=== PATIENT | female | born 1965 | race Caucasian/White ===

== ENCOUNTER 2016-07-29 10:57 | Emergency (ER) | payer OTHER ==
--- NOTE | 2016-07-29 13:03 | ED CLINICAL REPORT ---
Clinical Report - Physicians/Mid Levels [facility] [address] [place] [address] 07/29/2016 10:59 Patient: STACY ALVAREZ Time Seen: 11:16. Arrived- By private vehicle. Historian- patient. HISTORY OF PRESENT ILLNESS Chief Complaint: FLANK PAIN. It is described as cramping. No radiation. It is described as located in the left flank. This started about 2 weeks ago and is still present. It was abrupt in onset and has been waxing/waning. At its maximum, severity described as moderate. When seen in the E.D., severity described as moderate. Modifying factors- worsened by movement. Relieved by rest. No nausea, vomiting or diarrhea. REVIEW OF SYSTEMS No chills, fever, sweats, calf pain or chest pain. No cough, difficulty breathing, pedal edema, palpitations or abdominal pain. No constipation, diarrhea, nausea, vomiting or urinary problems. All systems otherwise negative, except as recorded above. PAST HISTORY Problems: Hepatitis C. URI. Bronchitis. Hypertension. Dental Pain. Dental Caries. Depression. Hypothyroidism. Anxiety Reaction. Additional Surgeries: Hysterectomy. Medications: Omeprazole Oral. Metoprolol Tartrate Oral. Effexor Oral 175mg , daily. Levothyroxine Sodium 150mcg daily . Allergies: NKA. SOCIAL HISTORY Current every day light tobacco smoker (cigarette)- less than 1/2 a pack per day. No alcohol use or drug use. FAMILY HISTORY Denies family medical history. ADDITIONAL NOTES The nursing notes have been reviewed. PHYSICAL EXAM Vital Signs: 07/29/2016 11:11 BP: 131/78. HR: 84. RR: 20. O2 saturation: 98%. Temp: 98.2 F. Have been reviewed. Appearance: Alert. Eyes: Pupils equal, round and reactive to light. ENT: Pharynx normal. Neck: Neck supple. CVS: Normal heart rate and rhythm. Heart sounds normal. Respiratory: No respiratory distress. Breath sounds normal. Abdomen: Soft and nontender. Bowel sounds normal. No organomegaly. No mass. Back: Painless ROM. Mild muscle spasm in the left mid lumbar spine region. No vertebral point tenderness. Skin: Skin warm and dry. Normal skin color. Normal skin turgor. Extremities: Extremities exhibit normal ROM. No lower extremity edema. Neuro: No motor deficit. No sensory deficit. LABS, X-RAYS, AND EKG Laboratory Tests: UA-Culture if indicated: (LIZ: 07/29/2016 11:10) ( [facility] 07/29/2016 11:34) Final results Test Result Flag Units (Reference) URINE COLOR YELLOW URINE APPEARANCE CLEAR URINE GLUCOSE NEGATIVE (NEGATIVE) URINE BILIRUBIN NEGATIVE (NEGATIVE) URINE KETONE NEGATIVE (NEGATIVE) URINE SPECIFIC GRAVITY >= 1.030 (1.010-1.030) URINE PH 5.5 (5.0-8.0) URINE PROTEIN NEGATIVE (NEGATIVE) URINE UROBILINOGEN 0.2 EU/dL (0.2-1.0) URINE NITRITE NEGATIVE (NEGATIVE) URINE BLOOD NEGATIVE (NEGATIVE) URINE LEUK ESTERASE NEGATIVE (NEGATIVE) URINE RBC NONE SEEN rbc/hpf (0-1) URINE WBC 0-1 wbc/hpf (0-1) URINE EPITHELIAL CELLS 0-1 EPI/hpf (0-5) URINE BACTERIA NONE SEEN (NONE SEEN) URINE COMMENT CULT NOT INDICATED URINE CULTURES ARE SET-UP BASED ON THE FOLLOWING CRITERIA:POSITIVE NITRITEPOSITIVE LEUKOCYTE ESTERASEGREATER THAN 10 WHITE BLOOD CELLSMODERATE (2+) OR GREATER BACTERIA CBC w Diff: (LIZ: 07/29/2016 11:28) ( [facility] 07/29/2016 12:03) Final results Test Result Flag Units (Reference) WHITE BLOOD COUNT 9.8 K/uL (4.5-11.5) RED BLOOD COUNT 4.12 M/uL (4.00-5.20) HEMOGLOBIN 13.4 gm/dL (12.0-16.0) HEMATOCRIT 39.4 % (36.0-46.0) MEAN CELL VOLUME 96 fL (80-100) MEAN CORPUSCULAR HGB 33 pg (26-34) MEAN CORPUSCULAR HGB CONC 34 g/dL (31-37) RED CELL DISTRIBUTION WIDTH 13.9 % (11.6-14.8) PLATELET COUNT 93 L K/uL (150-400) NEUTROPHIL % 43.6 L % (50-75) LYMPH % 46.5 H % (25-40) MONO % 8.0 % (3-14) EOSINOPHIL % 1.6 % (0-4) BASOPHIL % 0.3 % (0-2) CMP: (LIZ: 07/29/2016 11:28) ( MsgRcvd 07/29/2016 12:27) Final results Test Result Flag Units (Reference) LIPASE 318 U/L (73-393) AMYLASE 42 U/L (25-115) GLUCOSE 190 H mg/dL (70-110) BUN 13 mg/dL (7-18) CREATININE 0.7 mg/dL (0.6-1.3) Estimated GFR >60 mL/min Estimated GFR- >60 mL/min Note: Persistent reduction over 3 months in eGFR<60 mL/min/1.73 m2 defines CKD. Patients with eGFR values>=60 mL/min/1.73 m2 may also have CKD if evidence ofpersistent proteinuria. Additional information may be foundat www.kidney.org. SODIUM 138 mmol/L (136-145) POTASSIUM 3.9 mmol/L (3.5-5.1) CHLORIDE 104 mmol/L (98-107) CARBON DIOXIDE 27 mmol/L (21-32) CALCIUM 8.2 L mg/dL (8.5-10.1) TOTAL PROTEIN 8.7 H g/dL (6.4-8.2) ALBUMIN 2.8 L g/dL (3.3-5.0) BILIRUBIN, TOTAL 0.5 mg/dL (0.0-1.0) ALKALINE PHOSPHATASE 241 H U/L (46-116) AST (SGOT) 87 H U/L (15-37) ALT (SGPT) 106 H U/L (12-78) . PROGRESS AND PROCEDURES Course of Care: Patient is stable. Patient/family counseled. Old medical records reviewed. Disposition: Discharged. Condition: stable. CLINICAL IMPRESSION Myofascial strain INSTRUCTIONS No driving or operating machinery while taking medication. No bending or stooping, prolonged sitting or lifting greater than 5 lbs. Warnings: Further evaluation is necessary. GENERAL WARNINGS: Return or contact your physician immediately if your condition worsens or changes unexpectedly, if not improving as expected, or if other problems arise. Your Current Medications: CONTINUE TAKING THE FOLLOWING MEDICATIONS: Effexor Oral : 175mg daily. Levothyroxine Sodium : 150mcg daily. Metoprolol Tartrate Oral. Omeprazole Oral. Prescription Medications: Naproxen 500 mg tablets: take 1 orally every 12 hours as needed for pain. Dispense twenty (20). No refills. Cyclobenzaprine 10 mg: take 1 orally every 8 hours as needed for muscle spasm or pain. Dispense ten (10). No refills. Understanding of the discharge instructions verbalized by patient. Follow-up with: [facility], , , [address], , [facility] [id number] Follow up in three days. Call for the next available appointment. (Electronically signed by Hiren Patel MD 07/29/2016 16:41)
--- NOTE | 2016-07-29 13:03 | ED NURSING NOTES ---
Clinical Report - Nurses Located Within [facility] [address] [place] [address] 07/29/2016 10:59 Patient: STACY ALVAREZ TRIAGE Triage time 11:08. Acuity: LEVEL 3. Chief Complaint: ABDOMINAL PAIN. Alert. No acute distress. SEPSIS SCREEN: Sepsis Screen. Negative (no infection suspected/documented). --11:15 Radha Arriaga R.N. 11:11 07/29/16. BP: 131/78. HR: 84. RR: 20. O2 saturation: 98% on room air. Temp: 98.2 F (oral). Pain level now 5/10. --11:15 Radha Arriaga R.N. LUIS ANGEL COMA SCORE: [place] Coma Scale: 15- eyes open spontaneously (4); best verbal response- oriented x 4 (5); best motor response- obeys commands (6). --11:15 Radha Arriaga R.N. Weight: 92.9 kg stated. Height/Length: 64 inches Per Patient. BMI: 35.2. --11:12 Radha Arriaga R.N. Medications Effexor Oral 175mg , daily. Levothyroxine Sodium 150mcg daily . --11:13 Radha Arriaga R.N. Metoprolol Tartrate Oral. --11:13 Radha Arriaga R.N. Omeprazole Oral. --11:13 Radha Arriaga R.N. Medication/allergy information source: the patient. --11:15 Radha Arriaga R.N. Allergies NKA. --11:14 Radha Arriaga R.N. History Arrived by private vehicle. Historian: patient. Primary physician (no pcp). ( left lateral side pain. denies flank pain, denies abd pain, denies naesea, vomiting and diarrhea. Denies any burning with urination. States pain is worsened when she lays on her left side.). Onset. (1 weeks ago). No nausea, vomiting, diarrhea, constipation or abdominal pain. No fever. 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 SOCIAL HX: Light tobacco smoker (cigarette)- less than 1/2 a pack per day. No alcohol use or drug use. ABUSE ASSESSMENT: Abuse assessment: The patient was asked "Do you feel safe in your home?". No report of abuse. FALL RISK ASSESSMENT: Fall risk assessment completed. No fall risk identified. NUTRITIONAL RISK ASSESSMENT: The nutritional risk assessment revealed no deficiencies. FUNCTIONAL ASSESSMENT: Functional assessment: no impairments noted. LEARNING NEEDS ASSESSMENT: The learning needs assessment revealed no barriers. SKIN INTEGRITY ASSESSMENT: Skin integrity risk assessment completed. No skin integrity risk identified. --11:15 Radha Arriaga R.N. Interventions ID band on patient. To treatment room. --11:15 Radha Arriaga R.N. PHYSICAL ASSESSMENT 11:16 07/29/16. Ambulatory to room. GENERAL / NEURO / PSYCH: Alert. Oriented X 4. Appears in no acute distress. HEENT: Mucous membranes are pink. RESPIRATORY: Respirations not labored. CVS: Capillary refill less than 2 seconds. GI / : Abdomen soft and nontender. ( left side tender to palpation). SKIN: Skin is warm and dry. --11:16 Radha Arriaga R.N. NURSING PROGRESS NOTES 11:16 07/29/16. The plan of care for this patient has been created. Patient gowned. Head of bed elevated. Call light placed in reach. Bed placed in lowest position. Brakes of bed on. Patient ready for evaluation- chart flagged. --11:16 Radha Arriaga R.N. 11:16 07/29/16. Patient ID band checked for patient name and birthdate: patient confirmed. Instructions provided to collect clean catch urine and patient verbalized understanding. Clean catch urine collected with return of yellow-colored clear urine; odor is normal; sample sent to lab for urinalysis and culture. Specimen labeled in the presence of the patient. --11:16 Radha Arriaga R.N. 11:33 07/29/2016 One (1) unsuccessful IV access attempt of a PIV catheter including the right antecubital space. Applied bandage (with ultrasound guidance x 20 minutes). --11:48 Radha Arriaga R.N. ( pt was instructed during triage and again during blood draw not to have anything to eat or drink. Upon entering room to check on patient, found her to be eating and drinking coffee. Again instructed patient not to eat or drink. Pt states, "I couldn't help it."). --11:58 Radha Arriaga R.N. 13:00 07/29/16. BP: 144/81. HR: 78. RR: 22. O2 saturation: 99% on room air. Pain level now 12/01. --13:00 Radha Arriaga R.N. DISPOSITION / DISCHARGE 13:14 07/29/16. Departure time: 1314. Condition at departure: unchanged and stable. No learning barriers present. Discharge instructions provided and reviewed with the patient. Reviewed medication(s) side effects, precautions, dosing and course information. Prescription(s) given to the patient. Activity restrictions (light lifting) reviewed. Work note given. Patient verbalized understanding. Written instructions provided in Greek. The patient was discharged by the physician. She was discharged home and accompanied by family. She left the Emergency Department ambulatory and via private vehicle. Driving (daughter). --13:15 Radha Arriaga R.N. Locked/Released at 08/02/2016 10:06 by Radha Arriaga R.N.
--- NOTE | 2016-07-29 13:03 | ED CLINICAL REPORT ---
Clinical Report - Physicians/Mid Levels [facility] [address] [place] [address] 07/29/2016 10:59 Patient: STACY ALVAREZ Time Seen: 11:16. Arrived- By private vehicle. Historian- patient. HISTORY OF PRESENT ILLNESS Chief Complaint: FLANK PAIN. It is described as cramping. No radiation. It is described as located in the left flank. This started about 2 weeks ago and is still present. It was abrupt in onset and has been waxing/waning. At its maximum, severity described as moderate. When seen in the E.D., severity described as moderate. Modifying factors- worsened by movement. Relieved by rest. No nausea, vomiting or diarrhea. REVIEW OF SYSTEMS No chills, fever, sweats, calf pain or chest pain. No cough, difficulty breathing, pedal edema, palpitations or abdominal pain. No constipation, diarrhea, nausea, vomiting or urinary problems. All systems otherwise negative, except as recorded above. PAST HISTORY Problems: Hepatitis C. URI. Bronchitis. Hypertension. Dental Pain. Dental Caries. Depression. Hypothyroidism. Anxiety Reaction. Additional Surgeries: Hysterectomy. Medications: Omeprazole Oral. Metoprolol Tartrate Oral. Effexor Oral 175mg , daily. Levothyroxine Sodium 150mcg daily . Allergies: NKA. SOCIAL HISTORY Current every day light tobacco smoker (cigarette)- less than 1/2 a pack per day. No alcohol use or drug use. FAMILY HISTORY Denies family medical history. ADDITIONAL NOTES The nursing notes have been reviewed. PHYSICAL EXAM Vital Signs: 07/29/2016 11:11 BP: 131/78. HR: 84. RR: 20. O2 saturation: 98%. Temp: 98.2 F. Have been reviewed. Appearance: Alert. Eyes: Pupils equal, round and reactive to light. ENT: Pharynx normal. Neck: Neck supple. CVS: Normal heart rate and rhythm. Heart sounds normal. Respiratory: No respiratory distress. Breath sounds normal. Abdomen: Soft and nontender. Bowel sounds normal. No organomegaly. No mass. Back: Painless ROM. Mild muscle spasm in the left mid lumbar spine region. No vertebral point tenderness. Skin: Skin warm and dry. Normal skin color. Normal skin turgor. Extremities: Extremities exhibit normal ROM. No lower extremity edema. Neuro: No motor deficit. No sensory deficit. LABS, X-RAYS, AND EKG Laboratory Tests: UA-Culture if indicated: (LIZ: 07/29/2016 11:10) ( [facility] 07/29/2016 11:34) Final results Test Result Flag Units (Reference) URINE COLOR YELLOW URINE APPEARANCE CLEAR URINE GLUCOSE NEGATIVE (NEGATIVE) URINE BILIRUBIN NEGATIVE (NEGATIVE) URINE KETONE NEGATIVE (NEGATIVE) URINE SPECIFIC GRAVITY >= 1.030 (1.010-1.030) URINE PH 5.5 (5.0-8.0) URINE PROTEIN NEGATIVE (NEGATIVE) URINE UROBILINOGEN 0.2 EU/dL (0.2-1.0) URINE NITRITE NEGATIVE (NEGATIVE) URINE BLOOD NEGATIVE (NEGATIVE) URINE LEUK ESTERASE NEGATIVE (NEGATIVE) URINE RBC NONE SEEN rbc/hpf (0-1) URINE WBC 0-1 wbc/hpf (0-1) URINE EPITHELIAL CELLS 0-1 EPI/hpf (0-5) URINE BACTERIA NONE SEEN (NONE SEEN) URINE COMMENT CULT NOT INDICATED URINE CULTURES ARE SET-UP BASED ON THE FOLLOWING CRITERIA:POSITIVE NITRITEPOSITIVE LEUKOCYTE ESTERASEGREATER THAN 10 WHITE BLOOD CELLSMODERATE (2+) OR GREATER BACTERIA CBC w Diff: (LIZ: 07/29/2016 11:28) ( [facility] 07/29/2016 12:03) Final results Test Result Flag Units (Reference) WHITE BLOOD COUNT 9.8 K/uL (4.5-11.5) RED BLOOD COUNT 4.12 M/uL (4.00-5.20) HEMOGLOBIN 13.4 gm/dL (12.0-16.0) HEMATOCRIT 39.4 % (36.0-46.0) MEAN CELL VOLUME 96 fL (80-100) MEAN CORPUSCULAR HGB 33 pg (26-34) MEAN CORPUSCULAR HGB CONC 34 g/dL (31-37) RED CELL DISTRIBUTION WIDTH 13.9 % (11.6-14.8) PLATELET COUNT 93 L K/uL (150-400) NEUTROPHIL % 43.6 L % (50-75) LYMPH % 46.5 H % (25-40) MONO % 8.0 % (3-14) EOSINOPHIL % 1.6 % (0-4) BASOPHIL % 0.3 % (0-2) CMP: (LIZ: 07/29/2016 11:28) ( MsgRcvd 07/29/2016 12:27) Final results Test Result Flag Units (Reference) LIPASE 318 U/L (73-393) AMYLASE 42 U/L (25-115) GLUCOSE 190 H mg/dL (70-110) BUN 13 mg/dL (7-18) CREATININE 0.7 mg/dL (0.6-1.3) Estimated GFR >60 mL/min Estimated GFR- >60 mL/min Note: Persistent reduction over 3 months in eGFR<60 mL/min/1.73 m2 defines CKD. Patients with eGFR values>=60 mL/min/1.73 m2 may also have CKD if evidence ofpersistent proteinuria. Additional information may be foundat www.kidney.org. SODIUM 138 mmol/L (136-145) POTASSIUM 3.9 mmol/L (3.5-5.1) CHLORIDE 104 mmol/L (98-107) CARBON DIOXIDE 27 mmol/L (21-32) CALCIUM 8.2 L mg/dL (8.5-10.1) TOTAL PROTEIN 8.7 H g/dL (6.4-8.2) ALBUMIN 2.8 L g/dL (3.3-5.0) BILIRUBIN, TOTAL 0.5 mg/dL (0.0-1.0) ALKALINE PHOSPHATASE 241 H U/L (46-116) AST (SGOT) 87 H U/L (15-37) ALT (SGPT) 106 H U/L (12-78) . PROGRESS AND PROCEDURES Course of Care: Patient is stable. Patient/family counseled. Old medical records reviewed. Disposition: Discharged. Condition: stable. CLINICAL IMPRESSION Myofascial strain INSTRUCTIONS No driving or operating machinery while taking medication. No bending or stooping, prolonged sitting or lifting greater than 5 lbs. Warnings: Further evaluation is necessary. GENERAL WARNINGS: Return or contact your physician immediately if your condition worsens or changes unexpectedly, if not improving as expected, or if other problems arise. Your Current Medications: CONTINUE TAKING THE FOLLOWING MEDICATIONS: Effexor Oral : 175mg daily. Levothyroxine Sodium : 150mcg daily. Metoprolol Tartrate Oral. Omeprazole Oral. Prescription Medications: Naproxen 500 mg tablets: take 1 orally every 12 hours as needed for pain. Dispense twenty (20). No refills. Cyclobenzaprine 10 mg: take 1 orally every 8 hours as needed for muscle spasm or pain. Dispense ten (10). No refills. Understanding of the discharge instructions verbalized by patient. Follow-up with: [facility], , , [address], , [facility] [id number] Follow up in three days. Call for the next available appointment. (Electronically signed by Hiren Patel MD 07/29/2016 16:41)
--- NOTE | 2016-07-29 13:03 | ED ORDER SUMMARY ---
..... Patient: STACY ALVAREZ OrderSheet [facility] VisitID: [id number] [place] [address] 51y, F Registration Date/Time: 07/29/2016 ORDER SHEET Weight: 92.9 kg (stated) Allergies: NKA GENERAL ORDERS: CBC w Diff Urgent (11:07/29/2016 Jean Claude SARAVIA) (Ack 11:22 Aníbal) (11:30 KWilliams R.N.) CMP Urgent (11:07/29/2016 Jean Claude SARAVIA) (Ack 11:22 Aníbal) (11:30 KWilliams R.N.) UA-Culture if indicated Urgent (11:07/29/2016 Jean Claude SARAVIA) (Ack 11:22 Aníbal) (11:47 KWilliams R.N.) Amylase Urgent (11:07/29/2016 Jean Claude SARAVIA) (Ack 11:22 Aníbal) (11:30 KWilliams R.N.) Lipase Urgent (11:07/29/2016 Jean Claude SARAVIA) (Ack 11:22 Aníbal) (11:30 KWilliams R.N.) MEDICATION ORDERS: IV FLUIDS: IV NS : initial bolus 1000 mL (1000 mL/hr), then 150 mL/hr for 4h (NOW); Urgent (11:18 07/29/2016 Jean Claude SARAVIA) (Ack 11:57 KWilliams R.N.) ORDER SHEET NOTES: [Electronically signed by Hiren Patel MD (16:41 07/29/2016)] [Electronically signed by Radha Arriaga R.N. (10:06 08/02/2016)] [Electronically locked/signed by Radha Arriaga R.N. (10:08/02/2016)]
--- NOTE | 2016-07-29 13:03 | ED ORDER SUMMARY ---
..... Patient: STACY ALVAREZ OrderSheet [facility] VisitID: [id number] [place] [address] 51y, F Registration Date/Time: 07/29/2016 ORDER SHEET Weight: 92.9 kg (stated) Allergies: NKA GENERAL ORDERS: CBC w Diff Urgent (11:07/29/2016 Jean Claude SARAVIA) (Ack 11:22 Aníbal) (11:30 KWilliams R.N.) CMP Urgent (11:07/29/2016 Jean Claude SARAVIA) (Ack 11:22 Aníbal) (11:30 KWilliams R.N.) UA-Culture if indicated Urgent (11:07/29/2016 Jean Claude SARAVIA) (Ack 11:22 Aníbal) (11:47 KWilliams R.N.) Amylase Urgent (11:07/29/2016 Jean Claude SARAVIA) (Ack 11:22 Aníbal) (11:30 KWilliams R.N.) Lipase Urgent (11:07/29/2016 Jean Claude SARAVIA) (Ack 11:22 Aníbal) (11:30 KWilliams R.N.) MEDICATION ORDERS: IV FLUIDS: IV NS : initial bolus 1000 mL (1000 mL/hr), then 150 mL/hr for 4h (NOW); Urgent (11:18 07/29/2016 Jean Claude SARAVIA) (Ack 11:57 KWilliams R.N.) ORDER SHEET NOTES: [Electronically signed by Hiren Patel MD (16:41 07/29/2016)] [Electronically signed by Radha Arriaga R.N. (10:06 08/02/2016)] [Electronically locked/signed by Radha Arriaga R.N. (10:08/02/2016)]
--- NOTE | 2016-08-02 10:06 | ED MAR SUMMARY ---
..... Medication Administration Record [facility] [address] [place], [place] [id number] Patient: STACY ALVAREZ Visit ID: [id number] 51y, F Weight: 92.9 kg Height/Length: 64 in BMI: 35.2 ALLERGIES: NKA
--- NOTE | 2016-08-02 10:06 | ED MED RECONCILIATION SUMMARY ---
Patient: STACY ALVAREZ Medication Reconciliation Report [facility] VisitID: [id number] [address] [place] [address] 51y, F Registration Date/Time: 07/29/2016 Weight: 92.9 kg Height/Length: 64 in. BMI: 35.2 ALLERGIES: NKA The patient's Home Medications are listed below: CONTINUE TAKING THE FOLLOWING MEDICATIONS: Effexor Oral 175mg , daily Levothyroxine Sodium 150mcg daily Metoprolol Tartrate Oral Omeprazole Oral The source(s) of the original Home Medication information: patient The following Medications were given to the patient in the Emergency Department: None. The following Medications were prescribed to the patient: Naproxen 500 mg tablets: take 1 orally every 12 hours as needed for pain. Dispense twenty (20). No refills. -- Hiren Patel MD Cyclobenzaprine 10 mg: take 1 orally every 8 hours as needed for muscle spasm or pain. Dispense ten (10). No refills. -- Hiren Patel MD
--- NOTE | 2016-08-02 10:06 | ED MAR SUMMARY ---
..... Medication Administration Record [facility] [address], [place] [id number] Patient: STACY ALVAREZ Visit ID: [id number] 51y, F Weight: 92.9 kg Height/Length: 64 in BMI: 35.2 ALLERGIES: NKA
--- NOTE | 2016-08-02 10:06 | ED DISCHARGE INSTRUCTIONS ---
Patient: STACY ALVAREZ General Instructions [facility] VisitID: [id number] [address], [place] [address] 51y, F Registration Date/Time: 07/29/2016 Myofascial strain INSTRUCTIONS No driving or operating machinery while taking medication. No bending or stooping, prolonged sitting or lifting greater than 5 lbs. Warnings: Further evaluation is necessary. GENERAL WARNINGS: Return or contact your physician immediately if your condition worsens or changes unexpectedly, if not improving as expected, or if other problems arise. Your Current Medications: CONTINUE TAKING THE FOLLOWING MEDICATIONS: Effexor Oral : 175mg daily. Levothyroxine Sodium : 150mcg daily. Metoprolol Tartrate Oral. Omeprazole Oral. Prescription Medications: Naproxen 500 mg tablets: take 1 orally every 12 hours as needed for pain. Dispense twenty (20). No refills. Cyclobenzaprine 10 mg: take 1 orally every 8 hours as needed for muscle spasm or pain. Dispense ten (10). No refills. Understanding of the discharge instructions verbalized by patient. Follow-up with: [facility], , , [address], [facility], [id number] Follow up in three days. Call for the next available appointment. ADDITIONAL INFORMATION Muscle Strain,Extremity A MUSCLE STRAIN is a stretching and tearing of muscle fibers. This causes pain, especially with motion of that muscle. There may also be some swelling and bruising. Home Care: 1) Keep the injured area raised to reduce pain and swelling. This is especially important during the first 48 hours. 2) Make an ice pack (ice cubes in a plastic bag, wrapped in a towel) and apply for 20 minutes every 1-2 hours the first day. You should continue with ice packs 3-4 times a day for the second and third days. Unless otherwise instructed, on the fourth day you may begin hot soaks or hot packs (small towel soaked in hot water) 3-4 times a day while you gently exercise the involved area. 3) You may use acetaminophen (Tylenol) or ibuprofen (Motrin, Advil) to control pain, unless another medicine was prescribed. [ NOTE : If you have chronic liver or kidney disease or ever had a stomach ulcer or GI bleeding, talk with your doctor before using these medicines.] 4) For LEG STRAINS: If CRUTCHES have been recommended, do not bear full weight on the injured leg until you can do so without pain. You may return to sports when you are able to hop and run on the injured leg without pain. Follow Up with your doctor or this facility if you are not improving within the next five days. Get Prompt Medical Attention if any of the following occur: -- Fingers or toes become swollen, cold, blue, numb or tingly -- Pain or swelling increases Back Pain [Acute Or Chronic] Back pain is usually caused by an injury to the muscles or ligaments of the spine. Sometimes the disks that separate each bone in the spine may bulge and cause pain by pressing on a nearby nerve. Back pain may also appear after a sudden twisting/bending force (such as in a car accident), after a simple awkward movement, or lifting something heavy with poor body positioning. In either case, muscle spasm is often present and adds to the pain. Acute back pain usually gets better in one to two weeks. Back pain related to disk disease, arthritis in the spinal joints or spinal stenosis (narrowing of the spinal canal) can become chronic and last for months or years. Unless you had a physical injury (for example, a car accident or fall) X-rays are usually not ordered for the initial evaluation of back pain. If pain continues and does not respond to medical treatment, x-rays and other tests may be performed at a later time. Home Care: You may need to stay in bed the first few days. But, as soon as possible, begin sitting or walking to avoid problems with prolonged bed rest (muscle weakness, worsening back stiffness and pain, blood clots in the legs). When in bed, try to find a position of comfort. A firm mattress is best. Try lying flat on your back with pillows under your knees. You can also try lying on your side with your knees bent up towards your chest and a pillow between your knees. Avoid prolonged sitting. This puts more stress on the lower back than standing or walking. During the first two days after injury, apply an ICE PACK to the painful area for 20 minutes every 2-4 hours. This will reduce swelling and pain. HEAT (hot shower, hot bath or heating pad) works well for muscle spasm. You can start with ice, then switch to heat after two days. Some patients feel best alternating ice and heat treatments. Use the one method that feels the best to you. You may use acetaminophen (Tylenol) or ibuprofen (Motrin, Advil) to control pain, unless another pain medicine was prescribed. [NOTE: If you have chronic liver or kidney disease or ever had a stomach ulcer or GI bleeding, talk with your doctor before using these medicines.] Be aware of safe lifting methods and do not lift anything over 15 pounds until all the pain is gone. Follow Up with your doctor or this facility if your symptoms do not start to improve after one week. Physical therapy may be needed. [NOTE: If X-rays were taken, they will be reviewed by a radiologist. You will be notified of any new findings that may affect your care.] Get Prompt Medical Attention if any of the following occur: Pain becomes worse or spreads to your legs Weakness or numbness in one or both legs Loss of bowel or bladder control Numbness in the groin or genital area Naproxen Sodium Oral tablet What is this medicine? NAPROXEN (na PROX en) is a non-steroidal anti-inflammatory drug (NSAID). It is used to reduce swelling and to treat pain. This medicine may be used for dental pain, headache, or painful monthly periods. It is also used for painful joint and muscular problems such as arthritis, tendinitis, bursitis, and gout. How should I use this medicine? Take this medicine by mouth with a glass of water. Follow the directions on the prescription label. Take it with food if your stomach gets upset. Try to not lie down for at least 10 minutes after you take it. Take your medicine at regular intervals. Do not take your medicine more often than directed. Long-term, continuous use may increase the risk of heart attack or stroke. A special MedGuide will be given to you by the pharmacist with each prescription and refill. Be sure to read this information carefully each time. Talk to your electrical subcontractor regarding the use of this medicine in children. Special care may be needed. What side effects may I notice from receiving this medicine? Side effects that you should report to your doctor or health nursing care attendant as soon as possible: black or bloody stools, blood in the urine or vomit blurred vision chest pain difficulty breathing or wheezing nausea or vomiting severe stomach pain skin rash, skin redness, blistering or peeling skin, hives, or itching slurred speech or weakness on one side of the body swelling of eyelids, throat, lips unexplained weight gain or swelling unusually weak or tired yellowing of eyes or skin Side effects that usually do not require medical attention (report to your doctor or health nursing care attendant if they continue or are bothersome): constipation headache heartburn What may interact with this medicine? alcohol aspirin cidofovir diuretics lithium methotrexate other drugs for inflammation like ketorolac or prednisone pemetrexed probenecid warfarin What if I miss a dose? If you miss a dose, take it as soon as you can. If it is almost time for your next dose, take only that dose. Do not take double or extra doses. Where should I keep my medicine? Keep out of the reach of children. Store at room temperature between 15 and 30 degrees C (59 and 86 degrees F). Keep container tightly closed. Throw away any unused medicine after the expiration date. What should I tell my health care provider before I take this medicine? They need to know if you have any of these conditions: asthma cigarette smoker drink more than 3 alcohol containing drinks a day heart disease or circulation problems such as heart failure or leg edema (fluid retention) high blood pressure kidney disease liver disease stomach bleeding or ulcers an unusual or allergic reaction to naproxen, aspirin, other NSAIDs, other medicines, foods, dyes, or preservatives or trying to get breast-feeding What should I watch for while using this medicine? Tell your doctor or health nursing care attendant if your pain does not get better. Talk to your doctor before taking another medicine for pain. Do not treat yourself. This medicine does not prevent heart attack or stroke. In fact, this medicine may increase the chance of a heart attack or stroke. The chance may increase with longer use of this medicine and in people who have heart disease. If you take aspirin to prevent heart attack or stroke, talk with your doctor or health nursing care attendant. Do not take other medicines that contain aspirin, ibuprofen, or naproxen with this medicine. Side effects such as stomach upset, nausea, or ulcers may be more likely to occur. Many medicines available without a prescription should not be taken with this medicine. This medicine can cause ulcers and bleeding in the stomach and intestines at any time during treatment. Do not smoke cigarettes or drink alcohol. These increase irritation to your stomach and can make it more susceptible to damage from this medicine. Ulcers and bleeding can happen without warning symptoms and can cause . You may get drowsy or dizzy. Do not drive, use machinery, or do anything that needs mental alertness until you know how this medicine affects you. Do not stand or sit up quickly, especially if you are an older patient. This reduces the risk of dizzy or fainting spells. This medicine can cause you to bleed more easily. Try to avoid damage to your teeth and gums when you brush or floss your teeth. Cyclobenzaprine Hydrochloride Oral tablet What is this medicine? CYCLOBENZAPRINE (julius abernathy) is a muscle relaxer. It is used to treat muscle pain, spasms, and stiffness. How should I use this medicine? Take this medicine by mouth with a glass of water. Follow the directions on the prescription label. If this medicine upsets your stomach, take it with food or milk. Take your medicine at regular intervals. Do not take it more often than directed. Talk to your electrical subcontractor regarding the use of this medicine in children. Special care may be needed. What side effects may I notice from receiving this medicine? Side effects that you should report to your doctor or health nursing care attendant as soon as possible: allergic reactions like skin rash, itching or hives, swelling of the face, lips, or tongue chest pain fast heartbeat hallucinations seizures vomiting Side effects that usually do not require medical attention (report to your doctor or health nursing care attendant if they continue or are bothersome): headache What may interact with this medicine? Do not take this medicine with any of the following medications: cisapride droperidol flecainide grepafloxacin halofantrine levomethadyl MAOIs like Carbex, Eldepryl, Marplan, Nardil, and Parnate nilotinib pimozide probucol sertindole This medicine may also interact with the following medications: abarelix alcohol contrast dyes dolasetron guanethidine medicines for cancer medicines for depression, anxiety, or psychotic disturbances medicines to treat an irregular heartbeat medicines used for sleep or numbness during surgery or procedure methadone octreotide ondansetron palonosetron phenothiazines like chlorpromazine, mesoridazine, prochlorperazine, thioridazine some medicines for infection like alfuzosin, chloroquine, clarithromycin, levofloxacin, mefloquine, pentamidine, troleandomycin tramadol vardenafil What if I miss a dose? If you miss a dose, take it as soon as you can. If it is almost time for your next dose, take only that dose. Do not take double or extra doses. Where should I keep my medicine? Keep out of the reach of children. Store at room temperature between 15 and 30 degrees C (59 and 86 degrees F). Keep container tightly closed. Throw away any unused medicine after the expiration date. What should I tell my health care provider before I take this medicine? They need to know if you have any of these conditions: heart disease, irregular heartbeat, or previous heart attack liver disease thyroid problem an unusual or allergic reaction to cyclobenzaprine, tricyclic antidepressants, lactose, other medicines, foods, dyes, or preservatives or trying to get breast-feeding What should I watch for while using this medicine? Check with your doctor or health nursing care attendant if your condition does not improve within 1 to 3 weeks. You may get drowsy or dizzy when you first start taking the medicine or change doses. Do not drive, use machinery, or do anything that may be dangerous until you know how the medicine affects you. Stand or sit up slowly. Your mouth may get dry. Drinking water, chewing sugarless gum, or sucking on hard candy may help. You have been given the following additional information: Muscle Strain, Extremity Back Pain (Acute Or Chronic) Naproxen Sodium Oral tablet Cyclobenzaprine Hydrochloride Oral tablet No driving or operating machinery while taking medication. No bending or stooping, prolonged sitting or lifting greater than 5 lbs. (Electronically signed by Hiren Patel MD 07/29/2016 16:41)
--- NOTE | 2016-08-02 10:06 | ED DISCHARGE INSTRUCTIONS ---
Patient: STACY ALVAREZ General Instructions [facility] VisitID: [id number] [address], [place] [address] 51y, F Registration Date/Time: 07/29/2016 Myofascial strain INSTRUCTIONS No driving or operating machinery while taking medication. No bending or stooping, prolonged sitting or lifting greater than 5 lbs. Warnings: Further evaluation is necessary. GENERAL WARNINGS: Return or contact your physician immediately if your condition worsens or changes unexpectedly, if not improving as expected, or if other problems arise. Your Current Medications: CONTINUE TAKING THE FOLLOWING MEDICATIONS: Effexor Oral : 175mg daily. Levothyroxine Sodium : 150mcg daily. Metoprolol Tartrate Oral. Omeprazole Oral. Prescription Medications: Naproxen 500 mg tablets: take 1 orally every 12 hours as needed for pain. Dispense twenty (20). No refills. Cyclobenzaprine 10 mg: take 1 orally every 8 hours as needed for muscle spasm or pain. Dispense ten (10). No refills. Understanding of the discharge instructions verbalized by patient. Follow-up with: [facility], , , [address], [facility], [address] Follow up in three days. Call for the next available appointment. ADDITIONAL INFORMATION Muscle Strain,Extremity A MUSCLE STRAIN is a stretching and tearing of muscle fibers. This causes pain, especially with motion of that muscle. There may also be some swelling and bruising. Home Care: 1) Keep the injured area raised to reduce pain and swelling. This is especially important during the first 48 hours. 2) Make an ice pack (ice cubes in a plastic bag, wrapped in a towel) and apply for 20 minutes every 1-2 hours the first day. You should continue with ice packs 3-4 times a day for the second and third days. Unless otherwise instructed, on the fourth day you may begin hot soaks or hot packs (small towel soaked in hot water) 3-4 times a day while you gently exercise the involved area. 3) You may use acetaminophen (Tylenol) or ibuprofen (Motrin, Advil) to control pain, unless another medicine was prescribed. [ NOTE : If you have chronic liver or kidney disease or ever had a stomach ulcer or GI bleeding, talk with your doctor before using these medicines.] 4) For LEG STRAINS: If CRUTCHES have been recommended, do not bear full weight on the injured leg until you can do so without pain. You may return to sports when you are able to hop and run on the injured leg without pain. Follow Up with your doctor or this facility if you are not improving within the next five days. Get Prompt Medical Attention if any of the following occur: -- Fingers or toes become swollen, cold, blue, numb or tingly -- Pain or swelling increases Back Pain [Acute Or Chronic] Back pain is usually caused by an injury to the muscles or ligaments of the spine. Sometimes the disks that separate each bone in the spine may bulge and cause pain by pressing on a nearby nerve. Back pain may also appear after a sudden twisting/bending force (such as in a car accident), after a simple awkward movement, or lifting something heavy with poor body positioning. In either case, muscle spasm is often present and adds to the pain. Acute back pain usually gets better in one to two weeks. Back pain related to disk disease, arthritis in the spinal joints or spinal stenosis (narrowing of the spinal canal) can become chronic and last for months or years. Unless you had a physical injury (for example, a car accident or fall) X-rays are usually not ordered for the initial evaluation of back pain. If pain continues and does not respond to medical treatment, x-rays and other tests may be performed at a later time. Home Care: You may need to stay in bed the first few days. But, as soon as possible, begin sitting or walking to avoid problems with prolonged bed rest (muscle weakness, worsening back stiffness and pain, blood clots in the legs). When in bed, try to find a position of comfort. A firm mattress is best. Try lying flat on your back with pillows under your knees. You can also try lying on your side with your knees bent up towards your chest and a pillow between your knees. Avoid prolonged sitting. This puts more stress on the lower back than standing or walking. During the first two days after injury, apply an ICE PACK to the painful area for 20 minutes every 2-4 hours. This will reduce swelling and pain. HEAT (hot shower, hot bath or heating pad) works well for muscle spasm. You can start with ice, then switch to heat after two days. Some patients feel best alternating ice and heat treatments. Use the one method that feels the best to you. You may use acetaminophen (Tylenol) or ibuprofen (Motrin, Advil) to control pain, unless another pain medicine was prescribed. [NOTE: If you have chronic liver or kidney disease or ever had a stomach ulcer or GI bleeding, talk with your doctor before using these medicines.] Be aware of safe lifting methods and do not lift anything over 15 pounds until all the pain is gone. Follow Up with your doctor or this facility if your symptoms do not start to improve after one week. Physical therapy may be needed. [NOTE: If X-rays were taken, they will be reviewed by a radiologist. You will be notified of any new findings that may affect your care.] Get Prompt Medical Attention if any of the following occur: Pain becomes worse or spreads to your legs Weakness or numbness in one or both legs Loss of bowel or bladder control Numbness in the groin or genital area Naproxen Sodium Oral tablet What is this medicine? NAPROXEN (na PROX en) is a non-steroidal anti-inflammatory drug (NSAID). It is used to reduce swelling and to treat pain. This medicine may be used for dental pain, headache, or painful monthly periods. It is also used for painful joint and muscular problems such as arthritis, tendinitis, bursitis, and gout. How should I use this medicine? Take this medicine by mouth with a glass of water. Follow the directions on the prescription label. Take it with food if your stomach gets upset. Try to not lie down for at least 10 minutes after you take it. Take your medicine at regular intervals. Do not take your medicine more often than directed. Long-term, continuous use may increase the risk of heart attack or stroke. A special MedGuide will be given to you by the pharmacist with each prescription and refill. Be sure to read this information carefully each time. Talk to your vacuum drum drier operator regarding the use of this medicine in children. Special care may be needed. What side effects may I notice from receiving this medicine? Side effects that you should report to your doctor or health plant care worker as soon as possible: black or bloody stools, blood in the urine or vomit blurred vision chest pain difficulty breathing or wheezing nausea or vomiting severe stomach pain skin rash, skin redness, blistering or peeling skin, hives, or itching slurred speech or weakness on one side of the body swelling of eyelids, throat, lips unexplained weight gain or swelling unusually weak or tired yellowing of eyes or skin Side effects that usually do not require medical attention (report to your doctor or health plant care worker if they continue or are bothersome): constipation headache heartburn What may interact with this medicine? alcohol aspirin cidofovir diuretics lithium methotrexate other drugs for inflammation like ketorolac or prednisone pemetrexed probenecid warfarin What if I miss a dose? If you miss a dose, take it as soon as you can. If it is almost time for your next dose, take only that dose. Do not take double or extra doses. Where should I keep my medicine? Keep out of the reach of children. Store at room temperature between 15 and 30 degrees C (59 and 86 degrees F). Keep container tightly closed. Throw away any unused medicine after the expiration date. What should I tell my health care provider before I take this medicine? They need to know if you have any of these conditions: asthma cigarette smoker drink more than 3 alcohol containing drinks a day heart disease or circulation problems such as heart failure or leg edema (fluid retention) high blood pressure kidney disease liver disease stomach bleeding or ulcers an unusual or allergic reaction to naproxen, aspirin, other NSAIDs, other medicines, foods, dyes, or preservatives or trying to get breast-feeding What should I watch for while using this medicine? Tell your doctor or health plant care worker if your pain does not get better. Talk to your doctor before taking another medicine for pain. Do not treat yourself. This medicine does not prevent heart attack or stroke. In fact, this medicine may increase the chance of a heart attack or stroke. The chance may increase with longer use of this medicine and in people who have heart disease. If you take aspirin to prevent heart attack or stroke, talk with your doctor or health plant care worker. Do not take other medicines that contain aspirin, ibuprofen, or naproxen with this medicine. Side effects such as stomach upset, nausea, or ulcers may be more likely to occur. Many medicines available without a prescription should not be taken with this medicine. This medicine can cause ulcers and bleeding in the stomach and intestines at any time during treatment. Do not smoke cigarettes or drink alcohol. These increase irritation to your stomach and can make it more susceptible to damage from this medicine. Ulcers and bleeding can happen without warning symptoms and can cause . You may get drowsy or dizzy. Do not drive, use machinery, or do anything that needs mental alertness until you know how this medicine affects you. Do not stand or sit up quickly, especially if you are an older patient. This reduces the risk of dizzy or fainting spells. This medicine can cause you to bleed more easily. Try to avoid damage to your teeth and gums when you brush or floss your teeth. Cyclobenzaprine Hydrochloride Oral tablet What is this medicine? CYCLOBENZAPRINE (julius abernathy) is a muscle relaxer. It is used to treat muscle pain, spasms, and stiffness. How should I use this medicine? Take this medicine by mouth with a glass of water. Follow the directions on the prescription label. If this medicine upsets your stomach, take it with food or milk. Take your medicine at regular intervals. Do not take it more often than directed. Talk to your vacuum drum drier operator regarding the use of this medicine in children. Special care may be needed. What side effects may I notice from receiving this medicine? Side effects that you should report to your doctor or health plant care worker as soon as possible: allergic reactions like skin rash, itching or hives, swelling of the face, lips, or tongue chest pain fast heartbeat hallucinations seizures vomiting Side effects that usually do not require medical attention (report to your doctor or health plant care worker if they continue or are bothersome): headache What may interact with this medicine? Do not take this medicine with any of the following medications: cisapride droperidol flecainide grepafloxacin halofantrine levomethadyl MAOIs like Carbex, Eldepryl, Marplan, Nardil, and Parnate nilotinib pimozide probucol sertindole This medicine may also interact with the following medications: abarelix alcohol contrast dyes dolasetron guanethidine medicines for cancer medicines for depression, anxiety, or psychotic disturbances medicines to treat an irregular heartbeat medicines used for sleep or numbness during surgery or procedure methadone octreotide ondansetron palonosetron phenothiazines like chlorpromazine, mesoridazine, prochlorperazine, thioridazine some medicines for infection like alfuzosin, chloroquine, clarithromycin, levofloxacin, mefloquine, pentamidine, troleandomycin tramadol vardenafil What if I miss a dose? If you miss a dose, take it as soon as you can. If it is almost time for your next dose, take only that dose. Do not take double or extra doses. Where should I keep my medicine? Keep out of the reach of children. Store at room temperature between 15 and 30 degrees C (59 and 86 degrees F). Keep container tightly closed. Throw away any unused medicine after the expiration date. What should I tell my health care provider before I take this medicine? They need to know if you have any of these conditions: heart disease, irregular heartbeat, or previous heart attack liver disease thyroid problem an unusual or allergic reaction to cyclobenzaprine, tricyclic antidepressants, lactose, other medicines, foods, dyes, or preservatives or trying to get breast-feeding What should I watch for while using this medicine? Check with your doctor or health plant care worker if your condition does not improve within 1 to 3 weeks. You may get drowsy or dizzy when you first start taking the medicine or change doses. Do not drive, use machinery, or do anything that may be dangerous until you know how the medicine affects you. Stand or sit up slowly. Your mouth may get dry. Drinking water, chewing sugarless gum, or sucking on hard candy may help. You have been given the following additional information: Muscle Strain, Extremity Back Pain (Acute Or Chronic) Naproxen Sodium Oral tablet Cyclobenzaprine Hydrochloride Oral tablet No driving or operating machinery while taking medication. No bending or stooping, prolonged sitting or lifting greater than 5 lbs. (Electronically signed by Hiren Patel MD 07/29/2016 16:41)
--- NOTE | 2016-08-02 10:06 | ED MED RECONCILIATION SUMMARY ---
Patient: STACY ALVAREZ Medication Reconciliation Report [facility] VisitID: [id number] [address] [place] [address] 51y, F Registration Date/Time: 07/29/2016 Weight: 92.9 kg Height/Length: 64 in. BMI: 35.2 ALLERGIES: NKA The patient's Home Medications are listed below: CONTINUE TAKING THE FOLLOWING MEDICATIONS: Effexor Oral 175mg , daily Levothyroxine Sodium 150mcg daily Metoprolol Tartrate Oral Omeprazole Oral The source(s) of the original Home Medication information: patient The following Medications were given to the patient in the Emergency Department: None. The following Medications were prescribed to the patient: Naproxen 500 mg tablets: take 1 orally every 12 hours as needed for pain. Dispense twenty (20). No refills. -- Hiren Patel MD Cyclobenzaprine 10 mg: take 1 orally every 8 hours as needed for muscle spasm or pain. Dispense ten (10). No refills. -- Hiren Patel MD
== END 2016-07-29 13:14 | disposition home or self-care (01) ==
LOC: MNE SRH 10:57 → ED SRH 10:59
DX: S39.012A Strain of muscle, fascia and tendon of lower back, initial encounter (principal); X58.XXXA Exposure to other specified factors, initial encounter; Y93.9 Activity, unspecified; Y92.9 Unspecified place or not applicable; Y99.9 Unspecified external cause status; F17.210 Nicotine dependence, cigarettes, uncomplicated; Z79.899 Other long term (current) drug therapy
CPT/HCPCS: 90004; 90100; 92235; 92530; 95059

== ENCOUNTER 2016-08-19 13:03 | Emergency (ER) | payer OTHER ==
--- NOTE | 2016-08-19 14:50 | ED ORDER SUMMARY ---
..... Patient: STACY ALVAREZ OrderSheet [facility] VisitID: [id number] [address] [place] [address] 51y, F Registration Date/Time: 08/19/2016 ORDER SHEET Weight: 95.2 kg (stated) Allergies: NKA GENERAL ORDERS: MEDICATION ORDERS: Valium IM 5 mg (HIGH ALERT MEDICATION, NOW) (13:49 08/19/2016 Dwayne P.A.-C) (13:54 EHmaximino R.N.) Percocet PO 5/325 mg (HIGH ALERT MEDICATION, NOW) (14:34 08/19/2016 Dwayne P.A.-C) (14:40 Padma R.N.) IV FLUIDS: ORDER SHEET NOTES: [Electronically signed by Rosey Nice R.N. (15:21 08/19/2016)] [Electronically signed by Adelaide Wren PSalvatoreASalvatore-C (20:04 08/19/2016)] [Electronically locked/signed by Rosey Nice R.N. (15:21 08/19/2016)]
--- NOTE | 2016-08-19 14:50 | ED NURSING NOTES ---
Clinical Report - Nurses [facility] [address] [place] [address] 08/19/2016 13:05 Patient: STACY ALVAREZ TRIAGE Triage time 13:09. Acuity: LEVEL 4. Chief Complaint: Location of symptoms- left hip. 13:08/19/16. 13:08/19/16. Alert. ( Left hip pain, this started 3 weeks ago. Pt states she was seen here for this same pain recently. No trauma, injury to left hip, sudden onset of pain in left hip.). KHURRAM COMA SCORE: Khurram Coma Scale: 15- eyes open spontaneously (4); best verbal response- oriented x 4 (5); best motor response- obeys commands (6). --13:13 Jose Azar R.N. 13:08/19/16. BP: 132/98. HR: 115. RR: 22. O2 saturation: 97% on room air. Temp: 97.8 F (oral). Pain level now: 03/03. --13:13 Jose Azar R.N. Weight: 95.2 kg stated. Height/Length: 64 inches Per Patient. BMI: 36.1. --13:09 Jose Azar R.N. Medications Effexor Oral 175mg , daily. Levothyroxine Sodium 150mcg daily . Metoprolol Tartrate Oral. Omeprazole Oral. --13:11 Jose Azar R.N. Medication/allergy information source: the patient. --13:13 Jose Azar R.N. Allergies NKA. --13:11 Jose Azar R.N. History Arrived by private vehicle. Historian: patient and family. Accompanied by family. Primary physician (NONE). 13:08/19/16. No injury occurred. She has had trouble walking. 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 PAST MEDICAL HX: Tetanus status: up-to-date. Immunizations: up-to-date. SOCIAL HX: Current every day light tobacco smoker (cigarette)- less than 1/2 a pack per day. No alcohol use or drug use. No infectious disease exposure. ABUSE ASSESSMENT: No report of abuse. FALL RISK ASSESSMENT: Fall risk assessment completed. No fall risk identified. NUTRITIONAL RISK ASSESSMENT: The nutritional risk assessment revealed no deficiencies. FUNCTIONAL ASSESSMENT: Functional assessment: no impairments noted. LEARNING NEEDS ASSESSMENT: The learning needs assessment revealed no barriers. SKIN INTEGRITY ASSESSMENT: Skin integrity risk assessment completed. No skin integrity risk identified. --13:13 Jose Azar R.N. PROBLEMS: Myofascial Strain. Hepatitis C. URI. Bronchitis. Hypertension. Dental Pain. Dental Caries. Immunizations. Depression. Hypothyroidism. Anxiety Reaction. --13:11 Jose Azar R.N. ADDITIONAL SURGERIES: Hysterectomy. --13:11 Jose Azar R.N. Assessment 13:08/19/16. --13:13 Jose Azar R.N. Interventions 13:08/19/16. 13:08/19/16. ID and allergy band on patient. To treatment room. --13:13 Jose Azar R.N. PHYSICAL ASSESSMENT Ambulatory to room. GENERAL / NEURO / PSYCH: Alert. Appears in no acute distress. Appears in pain and anxious. CVS: Capillary refill is greater than 2 seconds. EXTREMITIES: Extremity pulses are within normal limits. No lower extremity edema. Normal gait. No extremity drainage. Left hip: tenderness. No deformity. SKIN: Skin intact. Skin is warm and dry. Skin not cool to touch. No diaphoresis noted or skin rash. No skin breakdown noted. --13:34 Rosey Nice R.N. NURSING PROGRESS NOTES The initial plan of care for this patient has been created This plan of care was discussed with the patient. Patient gowned. Reassurance given. GENERAL / NEURO / PSYCH: The patient reports pain. Denies numbness. Denies tingling. GI / : Denies nausea. Denies vomiting. Two patient identifiers checked. Call light placed in reach. Side rails up. Bed placed in lowest position. Brakes of bed on. --13:34 Rosey Nice R.N. 13:33 08/19/16. BP: 145/77 (regular adult cuff) taken on the left arm, via an automated monitor, while standing. HR: 113. RR: 20. O2 saturation: 100% on room air. Temp: 99 F. Pain level now: 03/03. --13:34 Rosey Nice R.N. 13:54 08/19/2016 Valium (Diazepam) IM 5 mg given. Given in the left gluteus andressa. Allergies verified, confirmed 5 rights and sedative warning given to the patient. --13:54 Rosey Nice R.N. Reassurance given. The patient has had no adverse reaction. Overall patient status- she states feels better. SKIN: Skin is warm and dry. Two patient identifiers checked. Call light placed in reach. --14:36 Rosey Nice R.N. 14:36 08/19/16. BP: 144/85. HR: 104. RR: 18. O2 saturation: 94%. Pain level now: 12/01. --14:36 Rosey Nice R.N. 14:40 08/19/2016 Percocet (Oxycodone-Acetaminophen) PO 5/325 mg Tablets 1 tab given. Allergies verified, confirmed 5 rights and sedative warning given to the patient. --14:40 Rosey Nice R.N. DISPOSITION / DISCHARGE Departure time: 1516 PM. Condition at departure: improved and stable. The goals identified in the patient's plan of care were met. No learning barriers present. Discharge instructions provided and reviewed with the patient. Reviewed medication(s) side effects, precautions, dosing and course information. Prescription(s) given to the patient. Reviewed referral to family practice for followup. Activity restrictions (rest) reviewed. Patient verbalized understanding. Written instructions provided in Croatian. The patient was discharged by the physician assistant coach. She was discharged home and accompanied by spouse. She left the Emergency Department ambulatory and via private vehicle. Patient driving. FALL RISK ASSESSMENT: Fall risk assessment completed. No fall risk identified. --15:18 Rosey Nice R.N. 15:05 08/19/16. BP: 145/85. HR: 82. RR: 16. O2 saturation: 100% on room air. Temp: 97.6 F (oral). Pain level now: 12/01. --15:18 Rosey Nice R.N. Locked/Released at 08/19/2016 15:21 by Rosey Nice R.N.
--- NOTE | 2016-08-19 14:50 | ED NURSING NOTES ---
Clinical Report - Nurses [facility] [address] [place] [address] 08/19/2016 13:05 Patient: STACY ALVAREZ TRIAGE Triage time 13:09. Acuity: LEVEL 4. Chief Complaint: Location of symptoms- left hip. 13:08/19/16. 13:08/19/16. Alert. ( Left hip pain, this started 3 weeks ago. Pt states she was seen here for this same pain recently. No trauma, injury to left hip, sudden onset of pain in left hip.). KHURRAM COMA SCORE: Khurram Coma Scale: 15- eyes open spontaneously (4); best verbal response- oriented x 4 (5); best motor response- obeys commands (6). --13:13 Jose Azar R.N. 13:08/19/16. BP: 132/98. HR: 115. RR: 22. O2 saturation: 97% on room air. Temp: 97.8 F (oral). Pain level now: 03/03. --13:13 Jose Azar R.N. Weight: 95.2 kg stated. Height/Length: 64 inches Per Patient. BMI: 36.1. --13:09 Jose Azar R.N. Medications Effexor Oral 175mg , daily. Levothyroxine Sodium 150mcg daily . Metoprolol Tartrate Oral. Omeprazole Oral. --13:11 Jose Azar R.N. Medication/allergy information source: the patient. --13:13 Jose Azar R.N. Allergies NKA. --13:11 Jose Azar R.N. History Arrived by private vehicle. Historian: patient and family. Accompanied by family. Primary physician (NONE). 13:08/19/16. No injury occurred. She has had trouble walking. 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 PAST MEDICAL HX: Tetanus status: up-to-date. Immunizations: up-to-date. SOCIAL HX: Current every day light tobacco smoker (cigarette)- less than 1/2 a pack per day. No alcohol use or drug use. No infectious disease exposure. ABUSE ASSESSMENT: No report of abuse. FALL RISK ASSESSMENT: Fall risk assessment completed. No fall risk identified. NUTRITIONAL RISK ASSESSMENT: The nutritional risk assessment revealed no deficiencies. FUNCTIONAL ASSESSMENT: Functional assessment: no impairments noted. LEARNING NEEDS ASSESSMENT: The learning needs assessment revealed no barriers. SKIN INTEGRITY ASSESSMENT: Skin integrity risk assessment completed. No skin integrity risk identified. --13:13 Jose Azar R.N. PROBLEMS: Myofascial Strain. Hepatitis C. URI. Bronchitis. Hypertension. Dental Pain. Dental Caries. Immunizations. Depression. Hypothyroidism. Anxiety Reaction. --13:11 Jose Azar R.N. ADDITIONAL SURGERIES: Hysterectomy. --13:11 Jose Azar R.N. Assessment 13:08/19/16. --13:13 Jose Azar R.N. Interventions 13:08/19/16. 13:08/19/16. ID and allergy band on patient. To treatment room. --13:13 Jose Azar R.N. PHYSICAL ASSESSMENT Ambulatory to room. GENERAL / NEURO / PSYCH: Alert. Appears in no acute distress. Appears in pain and anxious. CVS: Capillary refill is greater than 2 seconds. EXTREMITIES: Extremity pulses are within normal limits. No lower extremity edema. Normal gait. No extremity drainage. Left hip: tenderness. No deformity. SKIN: Skin intact. Skin is warm and dry. Skin not cool to touch. No diaphoresis noted or skin rash. No skin breakdown noted. --13:34 Rosey Nice R.N. NURSING PROGRESS NOTES The initial plan of care for this patient has been created This plan of care was discussed with the patient. Patient gowned. Reassurance given. GENERAL / NEURO / PSYCH: The patient reports pain. Denies numbness. Denies tingling. GI / : Denies nausea. Denies vomiting. Two patient identifiers checked. Call light placed in reach. Side rails up. Bed placed in lowest position. Brakes of bed on. --13:34 Rosey Nice R.N. 13:33 08/19/16. BP: 145/77 (regular adult cuff) taken on the left arm, via an automated monitor, while standing. HR: 113. RR: 20. O2 saturation: 100% on room air. Temp: 99 F. Pain level now: 03/03. --13:34 Rosey Nice R.N. 13:54 08/19/2016 Valium (Diazepam) IM 5 mg given. Given in the left gluteus andressa. Allergies verified, confirmed 5 rights and sedative warning given to the patient. --13:54 Rosey Nice R.N. Reassurance given. The patient has had no adverse reaction. Overall patient status- she states feels better. SKIN: Skin is warm and dry. Two patient identifiers checked. Call light placed in reach. --14:36 Rosey Nice R.N. 14:36 08/19/16. BP: 144/85. HR: 104. RR: 18. O2 saturation: 94%. Pain level now: 12/01. --14:36 Rosey Nice R.N. 14:40 08/19/2016 Percocet (Oxycodone-Acetaminophen) PO 5/325 mg Tablets 1 tab given. Allergies verified, confirmed 5 rights and sedative warning given to the patient. --14:40 Rosey Nice R.N. DISPOSITION / DISCHARGE Departure time: 1516 PM. Condition at departure: improved and stable. The goals identified in the patient's plan of care were met. No learning barriers present. Discharge instructions provided and reviewed with the patient. Reviewed medication(s) side effects, precautions, dosing and course information. Prescription(s) given to the patient. Reviewed referral to family practice for followup. Activity restrictions (rest) reviewed. Patient verbalized understanding. Written instructions provided in Divehi. The patient was discharged by the physician delivery driver assistant. She was discharged home and accompanied by spouse. She left the Emergency Department ambulatory and via private vehicle. Patient driving. FALL RISK ASSESSMENT: Fall risk assessment completed. No fall risk identified. --15:18 Rosey Nice R.N. 15:05 08/19/16. BP: 145/85. HR: 82. RR: 16. O2 saturation: 100% on room air. Temp: 97.6 F (oral). Pain level now: 12/01. --15:18 Rosey Nice R.N. Locked/Released at 08/19/2016 15:21 by Rosey Nice R.N.
--- NOTE | 2016-08-19 14:50 | ED ORDER SUMMARY ---
..... Patient: STACY ALVAREZ OrderSheet [facility] VisitID: [id number] [address] [place] [address] 51y, F Registration Date/Time: 08/19/2016 ORDER SHEET Weight: 95.2 kg (stated) Allergies: NKA GENERAL ORDERS: MEDICATION ORDERS: Valium IM 5 mg (HIGH ALERT MEDICATION, NOW) (13:49 08/19/2016 Dwayne P.A.-C) (13:54 EHmaximino R.N.) Percocet PO 5/325 mg (HIGH ALERT MEDICATION, NOW) (14:34 08/19/2016 Dwayne P.A.-C) (14:40 Padma R.N.) IV FLUIDS: ORDER SHEET NOTES: [Electronically signed by Rosey Nice R.N. (15:21 08/19/2016)] [Electronically signed by Adelaide Wren PSalvatoreASalvatore-C (20:04 08/19/2016)] [Electronically locked/signed by Rosey Nice R.N. (15:21 08/19/2016)]
--- NOTE | 2016-08-19 14:50 | ED CLINICAL REPORT ---
Clinical Report - Physicians/Mid Levels [facility] [address] [place] [address] 08/19/2016 13:05 Patient: STACY ALVAREZ Time Seen: 14:50 Aug 19 2016. Arrived- By private vehicle. Historian- patient. HISTORY OF PRESENT ILLNESS Chief Complaint: (left hip/ flank pain). The injury occurred 3 weeks [employer]WORK [employer]. (he reports left flank pain over the last 2 weeks, same pain was seen here previously, pain worsening. Denies any fall or trauma. Reports pain worse with movement, pain relieved by leaning forward on a bed or chair. Denies any radiation of pain. Denies any urgency or frequency. Denies any nausea or vomiting or diarrhea. Patient has not seen her primary care for this.). REVIEW OF SYSTEMS All systems otherwise negative, except as recorded above. PAST HISTORY Problems: Hepatitis C. URI. Bronchitis. Hypertension. Dental Pain. Dental Caries. Immunizations. Depression. Hypothyroidism. Anxiety Reaction. Additional Surgeries: Hysterectomy. Medications: Effexor Oral 175mg , daily. Levothyroxine Sodium 150mcg daily . Metoprolol Tartrate Oral. Omeprazole Oral. Allergies: NKA. ADDITIONAL NOTES The nursing notes have been reviewed. PHYSICAL EXAM Vital Signs: 08/19/2016 15:05 BP: 145/85. HR: 82. RR: 16. O2 saturation: 100%. Temp: 97.6 F. Pain level now: 7/10. Appearance: Alert. No acute distress. Neck: Posterior neck: No tenderness. CVS: Heart sounds normal. Respiratory: Chest nontender. No chest wall injury. Abdomen: No visible injury. Back: Tenderness (At the leftlateral flank side, reproduced to the full degree on palpation. No ecchymosis or erythema, spasms present.). Muscle spasm. ROM normal. Extremities: Normal inspection. No abrasions. Pelvis stable. Extremities atraumatic. Neuro: Oriented X 3. PROGRESS AND PROCEDURES Course of Care: There are no risks for spinal epidural abscess or hematoma as patient is without any risk factors such as IVDA or evidence of active infection, no midline tenderness to percussion. Hence I do not feel emergent imaging with an MRI is indicated. However I did discuss with the patient that if these symptoms develop, or if the pain does not resolve an MRI may need to be done outpatient, or in the ED if symptoms worsen acutely or new onset of the above mentioned symptoms develop. Patient when the urgency frequency. Previous records reviewed, with her lab workup as well as urinalysis. No new trauma. No signs of red flags. Patient ambulatory. Reproducible pain. No pulsatile abdominal mass. Good distal equal pulses. 08/19/2016 15:05 BP: 145/85. HR: 82. RR: 16. O2 saturation: 100%. Temp: 97.6 F. Pain level now: 10. Patient is stable. Physical exam findings are improved. Symptoms better. Patient/family counseled. Disposition: Discharged. CLINICAL IMPRESSION Acute myofascial strain INSTRUCTIONS Apply ice. (heat/ ic). Prescription Medications: Hydrocodone/APAP 5mg / 325mg: take 1 orally every 6 hours as needed for pain. Dispense twelve (12). No refill. Valium 5 mg: take 1 orally every 12 hours as needed for muscle spasm. Dispense ten (10). No refill. Substitution is permissible. Follow-up with: Turner Ramos MD, [facility], , [facility], [address] [place] [address] Follow up. Call for the next available appointment. (Electronically signed by Adelaide Wren P.A.-C 08/19/2016 20:04)
--- NOTE | 2016-08-19 14:50 | ED CLINICAL REPORT ---
Clinical Report - Physicians/Mid Levels [facility] [address] [place] [place] [address] 08/19/2016 13:05 Patient: STACY ALVAREZ Time Seen: 14:50 Aug 19 2016. Arrived- By private vehicle. Historian- patient. HISTORY OF PRESENT ILLNESS Chief Complaint: (left hip/ flank pain). The injury occurred 3 weeks [employer]. (he reports left flank pain over the last 2 weeks, same pain was seen here previously, pain worsening. Denies any fall or trauma. Reports pain worse with movement, pain relieved by leaning forward on a bed or chair. Denies any radiation of pain. Denies any urgency or frequency. Denies any nausea or vomiting or diarrhea. Patient has not seen her primary care for this.). REVIEW OF SYSTEMS All systems otherwise negative, except as recorded above. PAST HISTORY Problems: Hepatitis C. URI. Bronchitis. Hypertension. Dental Pain. Dental Caries. Immunizations. Depression. Hypothyroidism. Anxiety Reaction. Additional Surgeries: Hysterectomy. Medications: Effexor Oral 175mg , daily. Levothyroxine Sodium 150mcg daily . Metoprolol Tartrate Oral. Omeprazole Oral. Allergies: NKA. ADDITIONAL NOTES The nursing notes have been reviewed. PHYSICAL EXAM Vital Signs: 08/19/2016 15:05 BP: 145/85. HR: 82. RR: 16. O2 saturation: 100%. Temp: 97.6 F. Pain level now: 7/10. Appearance: Alert. No acute distress. Neck: Posterior neck: No tenderness. CVS: Heart sounds normal. Respiratory: Chest nontender. No chest wall injury. Abdomen: No visible injury. Back: Tenderness (At the leftlateral flank side, reproduced to the full degree on palpation. No ecchymosis or erythema, spasms present.). Muscle spasm. ROM normal. Extremities: Normal inspection. No abrasions. Pelvis stable. Extremities atraumatic. Neuro: Oriented X 3. PROGRESS AND PROCEDURES Course of Care: There are no risks for spinal epidural abscess or hematoma as patient is without any risk factors such as IVDA or evidence of active infection, no midline tenderness to percussion. Hence I do not feel emergent imaging with an MRI is indicated. However I did discuss with the patient that if these symptoms develop, or if the pain does not resolve an MRI may need to be done outpatient, or in the ED if symptoms worsen acutely or new onset of the above mentioned symptoms develop. Patient when the urgency frequency. Previous records reviewed, with her lab workup as well as urinalysis. No new trauma. No signs of red flags. Patient ambulatory. Reproducible pain. No pulsatile abdominal mass. Good distal equal pulses. 08/19/2016 15:05 BP: 145/85. HR: 82. RR: 16. O2 saturation: 100%. Temp: 97.6 F. Pain level now: 10. Patient is stable. Physical exam findings are improved. Symptoms better. Patient/family counseled. Disposition: Discharged. CLINICAL IMPRESSION Acute myofascial strain INSTRUCTIONS Apply ice. (heat/ ic). Prescription Medications: Hydrocodone/APAP 5mg / 325mg: take 1 orally every 6 hours as needed for pain. Dispense twelve (12). No refill. Valium 5 mg: take 1 orally every 12 hours as needed for muscle spasm. Dispense ten (10). No refill. Substitution is permissible. Follow-up with: Turner Rmaos MD, [facility], , [facility], [address] [place] [address] Follow up. Call for the next available appointment. (Electronically signed by Adelaide Wren P.A.-C 08/19/2016 20:04)
--- NOTE | 2016-08-19 20:04 | ED MED RECONCILIATION SUMMARY ---
Patient: STACY ALVAREZ Medication Reconciliation Report [facility] VisitID: [id number] [address] [place] [address] 51y, F Registration Date/Time: 08/19/2016 Weight: 95.2 kg Height/Length: 64 in. BMI: 36.1 ALLERGIES: NKA The patient's Home Medications are listed below: THE FOLLOWING MEDICATIONS NEED TO BE RECONCILED: Effexor Oral 175mg , daily Levothyroxine Sodium 150mcg daily Metoprolol Tartrate Oral Omeprazole Oral The source(s) of the original Home Medication information: patient The following Medications were given to the patient in the Emergency Department: Valium [IM] IM 5 mg, administered: 08/19/2016 1:54:00 PM Percocet [PO] PO 1 tab, administered: 08/19/2016 2:40:00 PM The following Medications were prescribed to the patient: Hydrocodone/APAP 5mg / 325mg: take 1 orally every 6 hours as needed for pain. Dispense twelve (12). No refill. -- Adelaide Wren, P.ASalvatore-Myke Valium 5 mg: take 1 orally every 12 hours as needed for muscle spasm. Dispense ten (10). No refill. Substitution is permissible. -- Adelaide Wren, P.A.-C
--- NOTE | 2016-08-19 20:04 | ED DISCHARGE INSTRUCTIONS ---
Patient: STACY ALVAREZ General Instructions [facility] VisitID: [id number] [place]lee Bar[place] [id number] 51y, F Registration Date/Time: 08/19/2016 Acute myofascial strain INSTRUCTIONS Apply ice. (heat/ ic). Prescription Medications: Hydrocodone/APAP 5mg / 325mg: take 1 orally every 6 hours as needed for pain. Dispense twelve (12). No refill. Valium 5 mg: take 1 orally every 12 hours as needed for muscle spasm. Dispense ten (10). No refill. Substitution is permissible. Follow-up with: Turner Ramos MD, [facility], , [facility], [address] [place] [address] Follow up. Call for the next available appointment. ADDITIONAL INFORMATION Muscle Strain,Extremity A MUSCLE STRAIN is a stretching and tearing of muscle fibers. This causes pain, especially with motion of that muscle. There may also be some swelling and bruising. Home Care: 1) Keep the injured area raised to reduce pain and swelling. This is especially important during the first 48 hours. 2) Make an ice pack (ice cubes in a plastic bag, wrapped in a towel) and apply for 20 minutes every 1-2 hours the first day. You should continue with ice packs 3-4 times a day for the second and third days. Unless otherwise instructed, on the fourth day you may begin hot soaks or hot packs (small towel soaked in hot water) 3-4 times a day while you gently exercise the involved area. 3) You may use acetaminophen (Tylenol) or ibuprofen (Motrin, Advil) to control pain, unless another medicine was prescribed. [ NOTE : If you have chronic liver or kidney disease or ever had a stomach ulcer or GI bleeding, talk with your doctor before using these medicines.] 4) For LEG STRAINS: If CRUTCHES have been recommended, do not bear full weight on the injured leg until you can do so without pain. You may return to sports when you are able to hop and run on the injured leg without pain. Follow Up with your doctor or this facility if you are not improving within the next five days. Get Prompt Medical Attention if any of the following occur: -- Fingers or toes become swollen, cold, blue, numb or tingly -- Pain or swelling increases Back Pain [Acute Or Chronic] Back pain is usually caused by an injury to the muscles or ligaments of the spine. Sometimes the disks that separate each bone in the spine may bulge and cause pain by pressing on a nearby nerve. Back pain may also appear after a sudden twisting/bending force (such as in a car accident), after a simple awkward movement, or lifting something heavy with poor body positioning. In either case, muscle spasm is often present and adds to the pain. Acute back pain usually gets better in one to two weeks. Back pain related to disk disease, arthritis in the spinal joints or spinal stenosis (narrowing of the spinal canal) can become chronic and last for months or years. Unless you had a physical injury (for example, a car accident or fall) X-rays are usually not ordered for the initial evaluation of back pain. If pain continues and does not respond to medical treatment, x-rays and other tests may be performed at a later time. Home Care: You may need to stay in bed the first few days. But, as soon as possible, begin sitting or walking to avoid problems with prolonged bed rest (muscle weakness, worsening back stiffness and pain, blood clots in the legs). When in bed, try to find a position of comfort. A firm mattress is best. Try lying flat on your back with pillows under your knees. You can also try lying on your side with your knees bent up towards your chest and a pillow between your knees. Avoid prolonged sitting. This puts more stress on the lower back than standing or walking. During the first two days after injury, apply an ICE PACK to the painful area for 20 minutes every 2-4 hours. This will reduce swelling and pain. HEAT (hot shower, hot bath or heating pad) works well for muscle spasm. You can start with ice, then switch to heat after two days. Some patients feel best alternating ice and heat treatments. Use the one method that feels the best to you. You may use acetaminophen (Tylenol) or ibuprofen (Motrin, Advil) to control pain, unless another pain medicine was prescribed. [NOTE: If you have chronic liver or kidney disease or ever had a stomach ulcer or GI bleeding, talk with your doctor before using these medicines.] Be aware of safe lifting methods and do not lift anything over 15 pounds until all the pain is gone. Follow Up with your doctor or this facility if your symptoms do not start to improve after one week. Physical therapy may be needed. [NOTE: If X-rays were taken, they will be reviewed by a radiologist. You will be notified of any new findings that may affect your care.] Get Prompt Medical Attention if any of the following occur: Pain becomes worse or spreads to your legs Weakness or numbness in one or both legs Loss of bowel or bladder control Numbness in the groin or genital area Hip Strain You have a strain of the muscles around the hip joint. A muscle strain is a stretching or tearing of muscle fibers. This causes pain, especially with motion of that muscle. There may also be some swelling and bruising. Home Care: Stay off the injured leg as much as possible until you can walk on it without pain. If you have a lot of pain with walking, crutches or a walker may be prescribed. (These can be rented or purchased at many pharmacies and surgical or orthopedic supply stores). Follow your doctor's advice regarding when to begin bearing weight on that leg. Apply an ice pack (ice cubes in a plastic bag, wrapped in a towel) over the injured area for 20 minutes every 1-2 hours the first day. Continue with ice packs 3-4 times a day for the next two days, then as needed for the relief of pain and swelling. Unless otherwise instructed, on the fourth day you may begin hot soaks or hot packs (small towel soaked in hot water) 3-4 times a day while you gently exercise the involved area. You may use acetaminophen (Tylenol) or ibuprofen (Motrin, Advil) to control pain, unless another pain medicine was prescribed. [NOTE: If you have chronic liver or kidney disease or ever had a stomach ulcer or GI bleeding, talk with your doctor before using these medicines.] If you play sports, you may resume these activities when you are able to hop and run on the injured leg without pain. Follow Up with your doctor, or as advised by our staff, if your symptoms do not begin to improve after one week. Further tests may be needed. [NOTE: If X-rays were taken, they will be reviewed by a radiologist. You will be notified of any new findings that may affect your care.] Get Prompt Medical Attention if any of the following occur: Increased swelling or increased bruising Pain becomes worse Decreased ability to bear weight on the injured side Hydrocodone Bitartrate, Acetaminophen Oral tablet What is this medicine? ACETAMINOPHEN; HYDROCODONE (a set a PAULINE jenifer fen; david droe KOE done) is a pain reliever. It is used to treat mild to moderate pain. How should I use this medicine? Take this medicine by mouth. Swallow it with a full glass of water. Follow the directions on the prescription label. If the medicine upsets your stomach, take the medicine with food or milk. Do not take more than you are told to take. Talk to your pyrotechnics press tender regarding the use of this medicine in children. This medicine is not approved for use in children. What side effects may I notice from receiving this medicine? Side effects that you should report to your doctor or health urgent care nurse practitioner as soon as possible: allergic reactions like skin rash, itching or hives, swelling of the face, lips, or tongue breathing problems confusion feeling faint or lightheaded, falls stomach pain yellowing of the eyes or skin Side effects that usually do not require medical attention (report to your doctor or health urgent care nurse practitioner if they continue or are bothersome): nausea, vomiting stomach upset What may interact with this medicine? alcohol antihistamines isoniazid medicines for depression, anxiety, or psychotic disturbances medicines for sleep muscle relaxants naltrexone narcotic medicines (opiates) for pain phenobarbital ritonavir tramadol What if I miss a dose? If you miss a dose, take it as soon as you can. If it is almost time for your next dose, take only that dose. Do not take double or extra doses. Where should I keep my medicine? Keep out of the reach of children. This medicine can be abused. Keep your medicine in a safe place to protect it from theft. Do not share this medicine with anyone. Selling or giving away this medicine is dangerous and against the law. Store at room temperature between 15 and 30 degrees C (59 and 86 degrees F). Protect from light. Keep container tightly closed. Throw away any unused medicine after the expiration date. Discard unused medicine and used packaging carefully. Pets and children can be harmed if they find used or lost packages. What should I tell my health care provider before I take this medicine? They need to know if you have any of these conditions: brain tumor Crohn's disease, inflammatory bowel disease, or ulcerative colitis drink more than 3 alcohol-containing drinks per day drug abuse or addiction head injury heart or circulation problems kidney disease or problems going to the bathroom liver disease lung disease, asthma, or breathing problems an unusual or allergic reaction to acetaminophen, hydrocodone, other opioid analgesics, other medicines, foods, dyes, or preservatives or trying to get breast-feeding What should I watch for while using this medicine? Tell your doctor or health urgent care nurse practitioner if your pain does not go away, if it gets worse, or if you have new or a different type of pain. You may develop tolerance to the medicine. Tolerance means that you will need a higher dose of the medicine for pain relief. Tolerance is normal and is expected if you take the medicine for a long time. Do not suddenly stop taking your medicine because you may develop a severe reaction. Your body becomes used to the medicine. This does NOT mean you are addicted. Addiction is a behavior related to getting and using a drug for a non-medical reason. If you have pain, you have a medical reason to take pain medicine. Your doctor will tell you how much medicine to take. If your doctor wants you to stop the medicine, the dose will be slowly lowered over time to avoid any side effects. You may get drowsy or dizzy when you first start taking the medicine or change doses. Do not drive, use machinery, or do anything that may be dangerous until you know how the medicine affects you. Stand or sit up slowly. There are different types of narcotic medicines (opiates) for pain. If you take more than one type at the same time, you may have more side effects. Give your health care provider a list of all medicines you use. Your doctor will tell you how much medicine to take. Do not take more medicine than directed. Call emergency for help if you have problems breathing. The medicine will cause constipation. Try to have a bowel movement at least every 2 to 3 days. If you do not have a bowel movement for 3 days, call your doctor or health urgent care nurse practitioner. Too much acetaminophen can be very dangerous. Do not take Tylenol (acetaminophen) or medicines that contain acetaminophen with this medicine. Many non-prescription medicines contain acetaminophen. Always read the labels carefully. You have been given the following additional information: Muscle Strain, Extremity Back Pain (Acute Or Chronic) Hip Strain Hydrocodone Bitartrate, Acetaminophen Oral tablet (Electronically signed by Adelaide Wren P.A.-C 08/19/2016 20:04)
--- NOTE | 2016-08-19 20:04 | ED MAR SUMMARY ---
..... Medication Administration Record [facility] [address] [place] [address] Patient: STACY ALVAREZ Visit ID: [id number] 51y, F Weight: 95.2 kg Height/Length: 64 in BMI: 36.1 ALLERGIES: NKA Given 13:54 08/19/2016 Rosey Nice RSalvatoreNSalvatore Medication Administered: VALIUM [IM] (DIAZEPAM), Dose: 5 mg IM. Medication Ordered: Valium IM 5 mg (HIGH ALERT MEDICATION, NOW). Given 14:40 08/19/2016 Rosey Nice, R.N. Medication Administered: PERCOCET [PO] (OXYCODONE-ACETAMINOPHEN), Dose: 1 tab 5/325 mg Tablets PO. Medication Ordered: Percocet PO 5/325 mg (HIGH ALERT MEDICATION, NOW).
--- NOTE | 2016-08-19 20:04 | ED MED RECONCILIATION SUMMARY ---
Patient: STACY ALVAREZ Medication Reconciliation Report [facility] VisitID: [id number] [address] [place] [address] 51y, F Registration Date/Time: 08/19/2016 Weight: 95.2 kg Height/Length: 64 in. BMI: 36.1 ALLERGIES: NKA The patient's Home Medications are listed below: THE FOLLOWING MEDICATIONS NEED TO BE RECONCILED: Effexor Oral 175mg , daily Levothyroxine Sodium 150mcg daily Metoprolol Tartrate Oral Omeprazole Oral The source(s) of the original Home Medication information: patient The following Medications were given to the patient in the Emergency Department: Valium [IM] IM 5 mg, administered: 08/19/2016 1:54:00 PM Percocet [PO] PO 1 tab, administered: 08/19/2016 2:40:00 PM The following Medications were prescribed to the patient: Hydrocodone/APAP 5mg / 325mg: take 1 orally every 6 hours as needed for pain. Dispense twelve (12). No refill. -- Adelaide Wren, P.ASalvatore-Myke Valium 5 mg: take 1 orally every 12 hours as needed for muscle spasm. Dispense ten (10). No refill. Substitution is permissible. -- Adelaide Wren, P.A.-C
--- NOTE | 2016-08-19 20:04 | ED MAR SUMMARY ---
..... Medication Administration Record [facility] [address] [place] [address] Patient: STACY ALVAREZ Visit ID: [id number] 51y, F Weight: 95.2 kg Height/Length: 64 in BMI: 36.1 ALLERGIES: NKA Given 13:54 08/19/2016 Rosey Nice RSalvatoreNSalvatore Medication Administered: VALIUM [IM] (DIAZEPAM), Dose: 5 mg IM. Medication Ordered: Valium IM 5 mg (HIGH ALERT MEDICATION, NOW). Given 14:40 08/19/2016 Rosey Nice, R.N. Medication Administered: PERCOCET [PO] (OXYCODONE-ACETAMINOPHEN), Dose: 1 tab 5/325 mg Tablets PO. Medication Ordered: Percocet PO 5/325 mg (HIGH ALERT MEDICATION, NOW).
== END 2016-08-19 15:14 | disposition home or self-care (01) ==
LOC: ED SRH 13:03
DX: S39.012A Strain of muscle, fascia and tendon of lower back, initial encounter (principal); X58.XXXA Exposure to other specified factors, initial encounter; Y99.9 Unspecified external cause status; Y93.9 Activity, unspecified; Y92.9 Unspecified place or not applicable; Z79.899 Other long term (current) drug therapy

== ENCOUNTER 2016-08-27 17:21 | Outpatient (CLI) | payer OTHER ==
--- NOTE | 2016-08-27 18:12 | DIAGNOSTIC IMAGING REPORT ---
PROCEDURE: XR LUMBAR SPINE 2 OR 3 VIEWS INDICATION: PAIN TECHNIQUE: Three views. COMPARISON: Lumbar MRI dated 01/25/2011 and lumbar spine films dated 05/22/2006 FINDINGS: Levoscoliosis. Spondylosis at L4-5 and L5-S1. IMPRESSION: 1. Lumbar levoscoliosis. Spondylosis L4-5 and L5-S1.
--- NOTE | 2016-08-27 18:13 | DIAGNOSTIC IMAGING REPORT ---
PROCEDURE: XR HIP BILATERAL INDICATION: PAIN TECHNIQUE: AP view of the pelvis and hips with lateral views of the bilateral hips. COMPARISON: None. FINDINGS: RIGHT HIP: Osseous structures and joint spaces are normal. LEFT HIP: Osseous structures and joint spaces are normal. PELVIS: Osseous pelvis is normal. IMPRESSION: 1. Negative pelvis and bilateral hips.
== END 2016-08-27 23:00 ==
LOC: XR SRH 17:21
DX: M25.552 Pain in left hip (principal); M47.816 Spondylosis without myelopathy or radiculopathy, lumbar region; M47.817 Spondylosis without myelopathy or radiculopathy, lumbosacral region

== ENCOUNTER 2016-09-08 10:44 | Outpatient (CLI) | payer OTHER | END 2016-09-08 23:00 | LOC: LAB SRH 10:44 | DX: B18.2 Chronic viral hepatitis C (principal) | CPT/HCPCS: 90074; 90075; 90077; 90078; 90100; 90977; 91511; 91816; 91817; 92180; 92800; 94135; 99098; 99777 ==

== ENCOUNTER 2016-09-24 09:56 | Outpatient (CLI) | payer OTHER ==
--- NOTE | 2016-09-24 11:57 | DIAGNOSTIC IMAGING REPORT ---
PROCEDURE: US ABDOMEN ULTRASOUND-LIMITED INDICATION: CHRONIC HEP C TECHNIQUE: Bonilla scale and color Doppler sonographic images were obtained of the right upper quadrant. COMPARISON: None. FINDINGS: The liver is normal in size, however the margin is moderately irregular, appearing micronodular, and the echotexture is diffusely mildly hyperechoic. No mass or biliary dilatation. The gallbladder is normal without stones or sludge. Normal wall thickness at 1.4 mm. No pericholecystic fluid or Beck's sign. The common duct is normal caliber at 6.6 mm. The visible portion of the pancreas, inferior vena cava, abdominal aorta, and portal vein appear normal with appropriate direction of flow in the portal vein. The right kidney is normal measuring 12.0 cm. No free fluid in the right upper quadrant. IMPRESSION: 1. Findings of hepatic cirrhosis without visible hepatocellular carcinoma. 2. No sonographic evidence of significant portal hypertension, although the spleen size was not included on the study.
--- NOTE | 2016-09-24 13:56 | DIAGNOSTIC IMAGING REPORT ---
PROCEDURE: MR LUMBAR SPINE W/O CONTRAST INDICATION: LUMBAR FORAMINAL STENOSIS, current complaints of left-sided radiculopathy, history of right-sided symptoms. TECHNIQUE: T1, T2, and STIR sagittal sequences. T2 and T1 axial sequences. COMPARISON: 01/25/2011 FINDINGS: Suboptimal images secondary to unavoidable, involuntary patient motion on most sequences. Alignment and curvature: Moderate leftward curvature of the lumbar spine, approximately 21 degrees, with the apex at the L3-4 level. There is mild leftward subluxation of L4-5 with reactive moderate lateral right endplate osteophytes. Vertebral bodies: Type 2 endplate modic changes around the L5-S1 level, and to a lesser extent at the L4-5 level. Partially imaged in type 1 modic changes anteriorly in the T10-11 end plates. Disc spaces: Asymmetric mild to moderate multilevel disc height loss mildly progressed at L3-4, L4-5, and L5-S1 compared to the prior study. Spinal canal: Normal distal cord and conus. No visible central canal mass. Paraspinal soft tissues: Normal L1-2: Minor circumferential disc bulge. Moderate facet arthropathy. L2-3: Mild circumferential disc bulge. Moderate facet arthropathy. Mild right foraminal narrowing. Similar compared to previous. L3-4: Mild to moderate diffuse circumferential disc bulge flattening the anterior CSF. Moderate facet and ligamentum flavum hypertrophy. Mild to moderate central canal stenosis. Moderate to severe right, and mild left foraminal narrowing, worse on the right compared to the previous study. L4-5: Large right foraminal and lateral disc osteophyte complex superimposed on moderate circumferential disc osteophyte complex. Mild to moderate facet hypertrophy. Mild to moderate central canal and lateral recess stenosis, left worse than right. Moderate bilateral foraminal stenosis, stable. L5-S1: Moderate broad-based posterior disc osteophyte complex and mild facet arthropathy. Moderate to severe bilateral foraminal narrowing. No significant central canal narrowing. IMPRESSION: 1. Degenerative disc and facet arthropathy at the L3-4 level now causes mild to moderate central canal stenosis, new compared to the previous study. 2. Moderate, and moderate to severe bilateral foraminal narrowing at L4-5 and L5-S1, similar compared to the previous study, secondary to facet spurring and disc osteophyte complex, fairly stable in extent compared to the prior study.
== END 2016-09-24 23:00 ==
LOC: US SRH 09:56
DX: K74.60 Unspecified cirrhosis of liver (principal); M47.817 Spondylosis without myelopathy or radiculopathy, lumbosacral region; M51.36 Other intervertebral disc degeneration, lumbar region